=== PATIENT | female | born 1975 | race Caucasian/White ===

== ENCOUNTER → 2022-02-08 | Outpatient (CLI) | payer OTHER ==
[2014-11-05 16:20] VITALS: BP 108/55
[~2022-02-08] MED LIST: AMIT10TA PO; BACL20TA PO; CYCL5TAB PO; DICL100G54 TP; DOXY25TA49 PO; ESCITALOPRAM OX10 MG PO; HYDR-2765 PO; IBUP-1060 PO; MELA10CA PO; OXYC18CA PO; TRAZ-123 PO
== END ==
LOC: SURGPAT 12:01
PROVIDERS: ATTEND Neurological Surgery
DX: Z01.812 Encounter for preprocedural laboratory examination (principal)
CPT/HCPCS: 87641

== ENCOUNTER 2022-02-20 12:30 | Inpatient (IN) | payer OTHER ==
[2022-02-08 12:24] VITALS: BP 114/66
[~2022-02-20] VITALS: Ht 172.7 cm; Wt 68.6 kg
[~2022-02-20 12:30] MED LIST changes: +HYDROmorphone 2 MG/ML INJ. IVP PRN; +IV RINGERS,LACTATED 1000ML 1,000 ML IV SCH; +MORPHINE SULFATE 2 MG/ML INJ. IVP PRN; +PROCHLORPERAZINE 10 MG/2 ML VIAL. IVP PRN; +fentaNYL PF VIAL 100 MCG/2 ML VIAL IVP PRN
[2022-03-06] MEDS ORDERED: fentaNYL PF VIAL 100 MCG/2 ML VIAL IVP PRN ×3 (06:00→15:30)
[2022-03-06] MEDS ORDERED: VANCOMYCIN 1 GM in IV NORMAL SALINE 250ML 250 ML IV PRN (06:00)
[2022-03-06] MEDS ORDERED: IV RINGERS,LACTATED 1000ML 1,000 ML IV SCH (06:00)
[2022-03-06] MEDS ORDERED: HYDROmorphone 2 MG/ML INJ. IVP PRN (06:00)
[2022-03-06 11:23] VITALS: BP 118/60
[2022-03-06] MEDS ORDERED: ROCURONIUM 50 MG/5 ML VIAL. ONE (11:35)
[2022-03-06] MEDS ORDERED: REMIFENTANIL 2 MG VIAL. IV ONE (11:35)
[2022-03-06] MEDS ORDERED: PROPOFOL 10 MG/ML (20ML) VIAL. IV ONE (11:36)
[2022-03-06] MEDS ORDERED: LIDOCAINE 2% PF 5 ML VIAL. ONE (11:36)
[2022-03-06] MEDS ORDERED: PROPOFOL 50 ML IV ONE ×2 (11:36→13:53)
[2022-03-06] MEDS ORDERED: PHENYLEPHRINE 10 MG/ML VIAL. ONE (11:36)
[2022-03-06] MEDS ORDERED: DESFLURANE > 120 MINUTES IH ONE (11:36)
[2022-03-06] MEDS ORDERED: MIDAZOLAM HCL/PF 2 MG/2 ML VIAL. ONE (11:37)
[2022-03-06] MEDS ORDERED: GLYCOPYRROLATE 1 MG/5 ML VIAL. ONE (11:38)
[2022-03-06] MEDS ORDERED: KETAMINE HCL IN NACL, ISO-OSM 50 MG/5 ML SYRINGE ONE (11:52)
[2022-03-06] MEDS ORDERED: SURGICEL HEMOSTAT 4X8 EACH. ONE (12:15)
[2022-03-06] MEDS ORDERED: GELATIN SPONGE SIZE 100. ONE (12:15)
[2022-03-06] MEDS ORDERED: BUPIVACAINE MPF 0.5% 30 ML VIAL. ONE (12:16)
[2022-03-06] MEDS ORDERED: LIDOCAINE 1%/EPI 1:100,000 20 ML VIAL. ONE (12:16)
[2022-03-06] MEDS ORDERED: THROMBIN TOPICAL 20,000 UNIT SPRAY.SYRN KIT TP ONE (12:16)
[2022-03-06] MEDS ORDERED: POVIDONE-IODINE 10% TOPICAL OINTMENT 28GM TUBE. TP ONE (12:59)
[2022-03-06] MEDS ORDERED: HYDROmorphone 2 MG/ML INJ. ONE (13:17)
[2022-03-06] MEDS ORDERED: ONDANSETRON PF 4 MG/2 ML VIAL. ONE (14:53)
--- NOTE | 2022-03-06 15:27 | PDOC4 ---
BRIEF OPERATIVE NOTE Date: Mar 06, 2022 Pre-Op Diagnosis chiari 1 malformation Post-Op Diagnosis same Procedure Performed suboccipital craniectomy and C1 laminectomy for chiari 1 decompression Surgeon Nick Chainstitch Felled Seam Operator none Anesthesia Type: General Blood Loss 25mL Specimens Obtained decompression Findings neuromonitoring improved compared to baseline upon completion of procedure Complications none apparent ERNESTINE BRAUN MD Mar 06, 2022 15:27
[2022-03-06] MEDS ORDERED: MORPHINE SULFATE 2 MG/ML INJ. ONE (15:29)
[2022-03-06] MEDS ORDERED: fentaNYL PF VIAL 100 MCG/2 ML VIAL ONE (15:29)
[2022-03-06] MEDS ORDERED: MAGNESIUM HYDROXIDE 2,400 MG/30 ML ORAL.SUSP. PO PRN (15:30)
[2022-03-06] MEDS ORDERED: ZOLPIDEM 5 MG TABLET. PO PRN (15:30)
[2022-03-06] MEDS ORDERED: CALCIUM CARBONATE 500 MG TAB.CHEW PO PRN (15:30)
[2022-03-06] MEDS: IV NORMAL SALINE 1000ML BAG 1,000 ML IV SCH (15:30)
[2022-03-06] MEDS ORDERED: diphenhydrAMINE HCL 25 MG CAPSULE PO PRN (15:30)
[2022-03-06] MEDS ORDERED: ACETAMINOPHEN 325 MG TABLET. PO PRN (15:30)
[2022-03-06] MEDS ORDERED: diphenhydrAMINE 50 MG/ML VIAL IV PRN (15:30)
[2022-03-06] MEDS ORDERED: MAG HYDROX/ALUMINUM HYD/SIMETH 30 ML ORAL.SUSP PO PRN (15:30)
[2022-03-06] MEDS ORDERED: NALOXONE 0.4 MG/ML VIAL. IV PRN ×2 (15:30)
[2022-03-06] MEDS ORDERED: ONDANSETRON PF 4 MG/2 ML VIAL. IVP PRN (15:30)
[2022-03-06] MEDS ORDERED: 0.9 % SODIUM CHLORIDE 10 ML DISP.SYRIN. IV PRN (15:30)
[2022-03-06] MEDS ORDERED: PROCHLORPERAZINE 10 MG/2 ML VIAL. ONE (15:32)
[2022-03-06] MEDS: MORPHINE SULFATE 2 MG/ML INJ. IVP PRN ×2 (15:35→15:57)
[2022-03-06] MEDS: PROCHLORPERAZINE 10 MG/2 ML VIAL. IVP PRN ×2 (15:36→15:58)
[2022-03-06] MEDS: fentaNYL PF VIAL 100 MCG/2 ML VIAL IVP PRN ×2 (15:36→15:43)
[2022-03-06] MEDS ORDERED: KETOROLAC 30 MG/ML VIAL. IVP ONE (16:00)
[2022-03-06] MEDS: FERROUS SULFATE 325 MG TABLET. PO SCH (17:00)
[2022-03-06] MEDS: CALCIUM CARB/VIT D3 500/200 TABLET. PO SCH (17:00)
[2022-03-06 19:11] VITALS: BP 114/73
[2022-03-06] MEDS: oxyCODONE ER 10 MG TAB.ER.12H PO SCH (20:45)
[2022-03-06] MEDS: BACLOFEN 10 MG TABLET. PO SCH (20:45)
[2022-03-06] MEDS: DOCUSATE SODIUM 100 MG CAPSULE. PO SCH (20:45)
[2022-03-06] MEDS: traZODone 100 MG TABLET. PO SCH (20:45)
[2022-03-06] MEDS: METHOCARBAMOL 750 MG TABLET PO SCH (20:45)
[2022-03-06] MEDS: SENNOSIDES/DOCUSATE 8.6/50MG TABLET. PO SCH (20:45)
[2022-03-06] MEDS: oxyCODONE/APAP 5/325 1 TAB TABLET PO PRN (20:46)
[2022-03-06] MEDS: DOXYLAMINE SUCCINATE 25 MG TABLET PO SCH (20:51)
[2022-03-06 21:00] VITALS: BP 113/73
[2022-03-06] MEDS: DICLOFENAC SODIUM 1% TOPICAL GEL 100GM TUBE. TP SCH (21:00)
[2022-03-06] MEDS ORDERED: NON FORMULARY ITEM (Melatonin 1 CAP) PO SCH (21:00)
[2022-03-06 22:00] VITALS: BP 116/76
[2022-03-06 23:00] VITALS: BP 105/69
[2022-03-07] VITALS (12 sets, daily range): BP systolic 93–112; BP diastolic 55–70
[2022-03-07] MEDS: oxyCODONE/APAP 5/325 1 TAB TABLET PO PRN ×3 (01:06→17:37)
[2022-03-07] MEDS: oxyCODONE ER 10 MG TAB.ER.12H PO SCH ×2 (08:01→20:41)
[2022-03-07] MEDS: CITALOPRAM 20 MG TABLET. PO SCH (08:02)
[2022-03-07] MEDS: MULTIVITAMIN with MINERAL TABLET. PO SCH (08:02)
[2022-03-07] MEDS: DOCUSATE SODIUM 100 MG CAPSULE. PO SCH ×2 (08:02→20:41)
[2022-03-07] MEDS: METHOCARBAMOL 750 MG TABLET PO SCH ×3 (08:02→20:40)
[2022-03-07] MEDS: CALCIUM CARB/VIT D3 500/200 TABLET. PO SCH ×2 (08:02→17:37)
[2022-03-07] MEDS: BACLOFEN 10 MG TABLET. PO SCH ×3 (08:03→20:41)
[2022-03-07] MEDS: FERROUS SULFATE 325 MG TABLET. PO SCH ×2 (08:03→17:37)
[2022-03-07] MEDS: SENNOSIDES/DOCUSATE 8.6/50MG TABLET. PO SCH ×2 (08:03→20:41)
[2022-03-07] MEDS: DICLOFENAC SODIUM 1% TOPICAL GEL 100GM TUBE. TP SCH ×4 (09:00→21:00)
--- NOTE | 2022-03-07 09:51 | PDOC ---
Date of Service: DATE: 03/07/22 TIME: 09:48 Progress Note: S: reports preoperative headaches improved since the procedure, incisional neck pain largely controlled with po meds O: AF/VSS, AAOx4, NAD, pupils equal, speech fluent, KIMBLE 5/5, sensation intact LT, dressing c/d/i, flat A: POD 1 suboccipital craniectomy and C1 laminectomy for chiari 1 decompression P: recovering well thus far, transfer out of ICU to floor, increase activities/PT Justifications for Admission Other Justification ERNESTINE BRAUN MD Mar 07, 2022 09:51
[2022-03-07] MEDS: IV NORMAL SALINE 1000ML BAG 1,000 ML IV SCH (15:30)
--- NOTE | 2022-03-07 20:20 | NUR ---
Pt was transferred to at 1999 via wheelchair with all of pt belongings. Report was given to KAILA Magana. Pt was able to transfer to bed with stand by assist. Chart was given to KAILA.
[2022-03-07] MEDS: traZODone 100 MG TABLET. PO SCH (20:40)
[2022-03-07] MEDS: DOXYLAMINE SUCCINATE 25 MG TABLET PO SCH (21:00)
[2022-03-08 07:00] VITALS: BP 102/58
[2022-03-08] MEDS: METHOCARBAMOL 750 MG TABLET PO SCH ×2 (07:48→13:35)
[2022-03-08] MEDS: BACLOFEN 10 MG TABLET. PO SCH ×2 (07:48→13:35)
[2022-03-08] MEDS: MULTIVITAMIN with MINERAL TABLET. PO SCH (07:48)
[2022-03-08] MEDS: oxyCODONE ER 10 MG TAB.ER.12H PO SCH (07:49)
[2022-03-08] MEDS: oxyCODONE/APAP 5/325 1 TAB TABLET PO PRN ×3 (07:49→15:28)
[2022-03-08] MEDS: CALCIUM CARB/VIT D3 500/200 TABLET. PO SCH ×2 (07:51→15:27)
[2022-03-08] MEDS: SENNOSIDES/DOCUSATE 8.6/50MG TABLET. PO SCH (07:52)
[2022-03-08] MEDS: DOCUSATE SODIUM 100 MG CAPSULE. PO SCH (07:52)
[2022-03-08] MEDS: CITALOPRAM 20 MG TABLET. PO SCH (07:52)
[2022-03-08] MEDS: FERROUS SULFATE 325 MG TABLET. PO SCH ×2 (07:52→15:27)
--- NOTE | 2022-03-08 08:31 | PDOC ---
Date of Service: DATE: 03/08/22 TIME: 08:28 Progress Note: S: Reports resolution of headaches and numbness since surgery. Reports incisional pain controlled with po regimen. O: AF/VSS, AAOx4, NAD, pupils equal, face symmetric, speech fluent, KIMBLE 5/5, sensation intact LT, dressing c/d/i and flat with mild shadowing A: POD 2 chiari 1 decompression - recovering well thus far P: d/c home with standard post op restrictions Justifications for Admission Other Justification ERNESTINE BRAUN MD Mar 08, 2022 08:31
[2022-03-08] MEDS ORDERED: SENN-209 PO (08:40)
[2022-03-08] MEDS ORDERED: METH-562 PO (08:40)
[2022-03-08] MEDS ORDERED: OXYC1TAB15 PO (08:40)
[2022-03-08] MEDS ORDERED: ZOLP5TAB PO (08:40)
[2022-03-08 11:00] VITALS: BP 113/62
[2022-03-08] MEDS: DICLOFENAC SODIUM 1% TOPICAL GEL 100GM TUBE. TP SCH ×2 (11:49→13:36)
[2022-03-08] MEDS: IV NORMAL SALINE 1000ML BAG 1,000 ML IV SCH (13:38)
--- NOTE | 2022-03-08 13:49 | NUR ---
reviewed discharged instructions orally with Monika. discussed and demonstrated dressing change, medications and follow up with Dr. Romero. also, discussed restrictions to activities of daily living
[2022-03-08 15:00] VITALS: BP 105/72
--- NOTE | 2022-03-08 17:10 | NUR ---
dismissed to home with . reviewed discharge instructions with him and her. both verbalized understanding of these instructions. verbalized understanding of restrictions to activities of daily living.
--- NOTE | 2022-03-09 17:15 | PATHOLOGY ---
[facility] Accession Number: [id number] . 01 Material submitted: . vertebral column - DECOMPRESSION . 01 Clinical history: . SUBOCCIPITAL CRANIECTOMY AND C1 LAMINECTOMY FOR CHIARI DECOMPRESSION . 02 Diagnosis: Suboccipital craniectomy and C1 laminectomy: - Segments of dense fibroconnective and fibroadipose tissue and sclerotic bone identified. (JPM:samuel; 03/09/2022) S 03/09/2022 0827 Local . 02 Comment: There is no evidence of an acute inflammatory process or malignancy. (JPM:samuel; 03/09/2022) . 02 Electronically signed: . Billy Cordon MD, Pathologist NPI- [id number] . 01 Gross description: . The specimen is received in formalin, labeled "Alba, Monika, decompression". Received are multiple segments of pale bergman to pink-bergman fibrous tissue admixed with fragments of gritty bone measuring 4.0 x 3.1 x 0.8 cm in aggregate dimensions. The specimen is submitted representatively in cassette A1, following light decalcification. ([facility]; 03/07/2022) NRI/NRI 03/07/2022 2140 Local . 02 Pathologist provided ICD-10: G93.5 . 02 CPT . 073477, 365572 Specimen Comment: Report sent to Specimen Comment: A duplicate report has been generated due to demographic updates. Performed at: 01 [facility] [address] [id number] MD [place] MD Phone: [phone] Performed at: 02 [facility] [address] [place], [place] [id number] MD Billy Cordon MD Phone: [phone]
--- NOTE | 2022-03-14 06:20 | OP ---
DATE OF SURGERY: 03/06/2022 SURGEON: Sesar Romero MD [employer] MA[employer]GER [employer] SERVICES: None. PREOPERATIVE DIAGNOSIS: Symptomatic Chiari 1 malformation. POSTOPERATIVE DIAGNOSIS: Symptomatic Chiari 1 malformation. PROCEDURES: Suboccipital craniectomy and bilateral C1 laminectomy for Chiari 1 decompression with intraoperative use of neuromonitoring. ANESTHESIA: General. COMPLICATIONS: None. INDICATIONS FOR THE PROCEDURE: The patient is a 46-year-old female who has had multiple cervical surgeries without benefit to symptoms. Imaging revealed Chiari 1 malformation with cerebellar tonsils extending to the superior aspect of C1. There was no syrinx, but her symptoms were consistent with this finding. Options were discussed and it was felt that she may benefit from suboccipital craniectomy with C1 laminectomy for Chiari 1 decompression. Please refer to the patient's chart for additional detail. DESCRIPTION OF PROCEDURE: After informed consent was obtained, the patient was brought into the operating room. She was placed under general anesthesia. Stone headholder was placed to a pressure of 70 pounds and she was turned prone onto the operating table. The Stone headholder was affixed to the bed with the head in some flexion to expose the suboccipital and posterior cervical region. Once this was complete, the posterior neck and suboccipital region were prepped and draped in the usual sterile fashion. A vertical incision was made extending from the region of the inion to approximately the spinous process of C2 to provide adequate exposure of C1 as well as the suboccipital region. Monopolar electrocautery was utilized to dissect avascular midline to first approach the spinous process of C2 as a landmark and C1 was readily palpated and dissected free with electrocautery. The suboccipital region was dissected to the midline. The osseous muscle attachments were dissected laterally to expose the suboccipital region down to the foramen magnum. Kerrison rongeurs were utilized to perform a laminectomy bilaterally at C1. Pneumatic drill as well as Kerrison rongeurs were utilized to produce the suboccipital craniectomy extending approximately 2 cm across the foramen magnum cephalad approximately 4 cm just at the suboccipital margin. The dura was preserved. There was a fibrous band at the origin of the foramen magnum. This was gently dissected free with a blunt nerve hook and a [place] and removed with Kerrison rongeurs. Upon completion of this, neuromonitoring potentials were noted to be significantly improved compared to baseline. The wound was generously irrigated with antibiotic irrigation prior to final closure. Pristine hemostasis was achieved with FloSeal, cottonoids and some use of bipolar electrocautery. The muscle and fascia were then reapproximated with 0 Vicryl in a simple interrupted fashion. The subcutaneous tissue reapproximated with 2-0 Vicryl in interrupted inverted fashion. The skin was reapproximated with bello. The wound was dressed with Xeroform, Telfa, 4x4's and Tegaderm. The drapes were taken down and the Stone headholder was detached from the bed and the patient was turned gently supine onto an adjacent gurney. Stone headholder was removed without difficulty. The pin sites were inspected for hemorrhage and no hemorrhage was observed. The patient was subsequently extubated in the operating room and taken to recovery in stable condition. The neuromonitoring potentials were found much improved compared to baseline at the completion of the procedure. At the end of the procedure, all needle and sponge counts were correct x2. There were no intraprocedural complications apparent. COLBY/LEANDRO DR: Debbie TID: [id number] JACQUELIN
== END 2022-03-08 17:14 | disposition home or self-care (01) | DRG 27 ==
LOC: OPSVCIP 03-06 10:52 → 1 WEST ICU 03-06 16:53 → 4 NORTH 03-07 20:25
PROVIDERS: ADMIT Neurological Surgery; ATTEND Neurological Surgery
PROC: 00NC0ZZ Release Cerebellum, Open Approach (ICD-10-PCS; principal; 2022-03-06 12:30)
PROC: 4A11X4G Monitoring of Peripheral Nervous Electrical Activity, Intraoperative, External Approach (ICD-10-PCS; 2022-03-06 12:30)
DX: G93.5 Compression of brain (principal); Z20.822 Contact with and (suspected) exposure to COVID-19
CPT/HCPCS: 88304; 88311; A4213; A4314; A4364; A4657; A4930; A6219; A6223; A6254; A6255; A6258; A6402; J0780; J1170; J1885; J2250; J2270; J2370; J2405; J2704; J3010; J3370; J3490; J7050; J7120; 97110-GP; 97116-GP; 97530-GP; G0378; J7030